=== PATIENT | female | born 1970 | race Caucasian/White ===

== ENCOUNTER 2016-11-13 16:17 | Emergency (ER) | payer BC ==
[2016-11-13] MEDS ORDERED: Ketorolac Tromethamine 60 MG/2 ML VIAL ONE (17:34)
[2016-11-13] MEDS ORDERED: Diazepam 5 MG TAB ONE (17:34)
== END 2016-11-13 20:10 | disposition home or self-care (01) ==
LOC: ERS 16:17
DX: S00.03XA Contusion of scalp, initial encounter (principal); T14.8 Other injury of unspecified body region; G43.909 Migraine, unspecified, not intractable, without status migrainosus; V43.52XA Car driver injured in collision with other type car in traffic accident, initial encounter
CPT/HCPCS: 96372; J1885

== ENCOUNTER 2017-01-07 11:04 | Emergency (ER) | payer BC ==
[2017-01-07] MEDS ORDERED: Ibuprofen 800 MG TAB ONE (11:39)
--- NOTE | 2017-01-07 12:37 | RAD ---
3 VIEWS LEFT FOOT: Date: 01/07/17 HISTORY: Left foot and ankle pain. Unknown injury. Patient stepped on a rock wrong yesterday. FINDINGS: There is no evidence of a fracture or dislocation. Lisfranc joint is normally aligned. Posterior and plantar calcaneal enthesophytes are seen. IMPRESSION: No acute osseous abnormality. POS: [facility]
== END 2017-01-07 11:59 | disposition home or self-care (01) ==
LOC: SCSER 11:04
DX: S90.32XA Contusion of left foot, initial encounter (principal); W22.8XXA Striking against or struck by other objects, initial encounter

== ENCOUNTER 2018-01-12 15:18 | Outpatient (CLI) | payer BC ==
--- NOTE | 2018-01-12 16:32 | RAD ---
RIGHT KNEE FOUR VIEWS: 01/12/18 HISTORY: Osteoarthritis of both knees, bilateral knee pain. FINDINGS: No fracture, dislocation or bony destruction is seen. There is narrowing of the medial tibiofemoral j oint space on the weightbearing image. No significant osteophytosis is seen. IMPRESSION: Mild osteoarthritis of the right knee. POS: [facility]
--- NOTE | 2018-01-12 16:33 | RAD ---
TWO VIEW CHEST: 01/12/18 INDICATION: Moderate persistent reactive airway disease without complication, dyspnea. FINDINGS: The cardiac silhouette is upper limits of normal in size. There is no consolidation, effusion or pneu mothorax. Osseous structures are intact. IMPRESSION: No focal consolidation. The cardiac silhouette is at upper limits of normal in size. POS: [facility]
--- NOTE | 2018-01-12 16:34 | RAD ---
LEFT KNEE FOUR VIEWS: 01/12/18 HISTORY: Osteoarthritis of both knees, left knee pain, bilateral knee pain. FINDINGS: There is narrowing of the medial tibiofemoral compartment on the weightbearing image. Minimal osteoph yte formation is seen. No fracture or dislocation or bony destructive identified. IMPRESSION: Mild osteoarthritis of the left knee. POS: [facility]
== END 2018-01-12 15:19 | disposition home or self-care (01) ==
LOC: BICRAD 15:18
PROVIDERS: ATTEND Internal Medicine
DX: M17.0 Bilateral primary osteoarthritis of knee (principal); J45.40 Moderate persistent asthma, uncomplicated; R06.00 Dyspnea, unspecified
CPT/HCPCS: 71046